=== PATIENT | female | born 1960 | race Two or more races ===

== ENCOUNTER 2016-07-29 10:58 | Emergency (ER) | payer MEDICAID ==
[~2016-07-29] VITALS: Ht 165.1 cm; Wt 86.2 kg
[2016-07-29] MEDS ORDERED: GABAPENTIN300 MG ORAL (11:17)
[2016-07-29] MEDS ORDERED: LEVOTHYROXINE125 MCG ORAL (11:17)
[2016-07-29] MEDS ORDERED: FOLIC ACID1 MG ORAL (11:17)
[2016-07-29] MEDS ORDERED: DICLOFENAC SODI75 MG ORAL (11:17)
[2016-07-29] MEDS ORDERED: OMEPRAZOLE20 M2 ORAL (11:17)
[2016-07-29] MEDS ORDERED: SODIUM BICARBO650 MG PO (11:17)
[2016-07-29] MEDS ORDERED: OYSTER SHELL 51 EAC1 PO (11:17)
[2016-07-29] MEDS ORDERED: PLAQUENIL200 MG ORAL (11:17)
[2016-07-29] MEDS ORDERED: LOSARTAN POTASS50 MG ORAL (11:17)
[2016-07-29] MEDS ORDERED: PAIN & FEVER500 MG PO (11:17)
[2016-07-29] MEDS ORDERED: VITAMIN D250000 UNI1 ORAL (11:17)
[2016-07-29] MEDS ORDERED: GLIPIZIDE5 MG ORAL (11:17)
[2016-07-29] MEDS ORDERED: METFORMIN HCL500 M1 ORAL (11:17)
[2016-07-29] MEDS ORDERED: PREDNISONE10 MG ORAL (11:17)
--- NOTE | 2016-07-29 11:24 | Emergency Room Report ---
History of Present Illness General Chief Complaint: Multiple Trauma/Fall Source: Patient Present Illness HPI Patient presents with complaints of upper chest and back pain Bilateral knee pain patient had a mechanical fall Forward bracing her fall Denies any loss of consciousness Denies any neck pain pain in the chest area is in the upper mid thorax also pain in the mid upper back 8/10 Pain is worse with inspiration Denies any upper extremity discomfort in the arms Allergies: Coded Allergies: No Known Allergies (Unverified , 07/29/16) Patient History Past Medical History: see triage record Pertinent Family History: none Reviewed Nursing Documentation: PMH: Agreed, PSxH: Agreed Nursing Documentation-PM Past Medical History: No History, Except For Hx Asthma: Yes Hx Diabetes: Yes Review of Systems All Other Systems: negative except mentioned in HPI Physical Exam Vital Signs Date Time Temp Pulse Resp B/P Pulse Ox O2 Delivery O2 Flow Rate FiO2 07/29/16 10:52 97.5 95 16 166/87 100 Room Air Sp02 EP Interpretation: reviewed, normal General Appearance: mild distress - Appears in acute pain Head: normocephalic, atraumatic Eyes: bilateral eye EOMI, bilateral eye PERRL ENT: hearing grossly normal, normal pharynx, TMs + canals normal, uvula midline Neck: full range of motion, supple, no meningismus, no bony tend Respiratory: lungs clear, normal breath sounds, no rhonchi, no respiratory distress, no retraction, no accessory muscle use Cardiovascular #1: normal peripheral pulses, regular rate, rhythm, no edema, no gallop, no JVD, no murmur, other - Patient is tender on the chest wall palpation diffusely Gastrointestinal: normal bowel sounds, non tender, soft, no mass, no organomegaly, non-distended, no guarding, no hernia, no pulsatile mass, no rebound Genitourinary: no CVA tenderness Musculoskeletal: other - Tender T-spine through out Neurologic: oriented x3, responsive, sensory intact Psychiatric: mood/affect normal Skin: other - Abrasion on the left knee Lymphatic: normal inspection, no adenopathy Medical Decision Making Diagnostic Impression: Primary Impression: Multiple injuries due to trauma Additional Impressions: Chest wall contusion Back sprain ER Course Given the patient's presentation and initial discomfort CAT scan imaging was obtained all imaging studies were read as no acute pathology Patient did better with pain medications here and at this time stable for close outpatient followup Rhythm Strip Diag. Results EP Interpretation: yes Rate: 77 Rhythm: NSR, no PVC's, no ectopy Other X-Ray Diagnostic Results Other X-Ray Diagnostic Results #1: EP Interpretation: Yes Findings: no fractures, no dislocation, no soft tissue swelling Number of Views: 3 - right knee Other X-Ray Diagnostic Results #2: EP Interpretation: Yes Findings: no fractures, no dislocation, no soft tissue swelling Number of Views: 3 - left knee CT/MRI/US Diagnostic Results CT/MRI/US Diagnostic Results : Impression CT chest no acute disease CT thoracic spine no acute disease Last Vital Signs Date Time Temp Pulse Resp B/P Pulse Ox O2 Delivery O2 Flow Rate FiO2 07/29/16 10:52 97.5 95 16 166/87 100 Room Air Status: improved Disposition: HOME, SELF-CARE Condition: Improved Scripts Acetaminophen With Codeine (T#3) (TYLENOL #3 TAB*) Y Tab 1 TAB ORAL Q8H Y for For Pain, #10 TAB Prov: DELANO REEDER D.O. 07/29/16 Ibuprofen* (MOTRIN*) 600 Mg Tablet 600 MG ORAL Q8H Y for For Pain, #20 TAB 0 Refills Prov: DELANO REEDER D.O. 07/29/16 Additional Instructions: Patient is provided with the discharge instructions notified to follow up with primary doctor in the next 2-3 days otherwise return to the er with any worsening symptoms. DELANO REEDER D.O. Jul 29, 2016 11:24
[2016-07-29] MEDS ORDERED: Morphine Sulfate 4mg/ml Inj IM ONE (11:30)
[2016-07-29 11:42] VITALS: BP 166/87
[2016-07-29] MEDS ORDERED: IBUPROFEN600 MG ORAL (12:51)
[2016-07-29] MEDS ORDERED: ACETAMINOPHEN-1 EAC1 ORAL (12:51)
[2016-07-29 13:10] VITALS: BP 156/91
[2016-07-29 13:45] VITALS: BP 156/91
--- NOTE | 2016-07-30 10:16 | Diagnostic Imaging Report ---
Indication: Right knee pain Technique: XRAY KNEE THREE VIEWS RIGHT Comparison: None Findings: There is no acute fracture or dislocation. A right knee arthroplasty is present without plain film evidence of hardware complication. Mild soft tissue swelling is seen. Impression: No acute osseous abnormality. Mild soft tissue swelling. Clinical correlation recommended. Right knee arthroplasty.
--- NOTE | 2016-07-30 10:25 | Diagnostic Imaging Report ---
Indication: Chest pain Technique: CT chest was performed utilizing automated exposure control without intravenous contrast material. Axial and coronal images were generated. CT dose: Total DLP 2148 mGycm; CTDI vol 33.9 mGy Comparison: None Findings: Evaluation is limited by respiratory motion. Dependent linear opacities are suggestive of atelectasis. Atherosclerotic changes are present. No pericardial or pleural effusions are seen. There is fatty infiltration of the liver. Degenerative changes of the spine are seen. No CT evident thoracic fractures are identified. Degenerative endplate osteophytes of the thoracic spine are seen. Impression: No acute injury of the chest. Atelectasis. Degenerative changes of the spine. Atherosclerotic changes. Fatty infiltration of the partially visualized liver. The CT scanner at [facility] is accredited by the [employer] and the scans are performed using protocols designed to limit radiation exposure to as low as reasonably achievable to attain images of sufficient resolution adequate for diagnostic evaluation.
--- NOTE | 2016-07-30 11:27 | Diagnostic Imaging Report ---
Indication: Left knee pain Technique: XRAY KNEE THREE VIEWS LEFT Comparison: None Findings: There is no radiographically evident acute fracture or dislocation. Tricompartment osteophytes are seen with medial and patellofemoral compartment joint space narrowing. There is osteopenia. Impression: No radiographically evident fracture or dislocation. Clinical correlation recommended. Left knee degenerative changes. Osteopenia.
--- NOTE | 2016-07-30 11:27 | Diagnostic Imaging Report ---
Indication: Back pain status post fall Technique: CT thoracic spine was performed utilizing automated exposure control without intravenous contrast material. Axial and coronal images were generated. CT dose: Total DLP 2148 mGycm; CTDI vol 33.9 mGy Comparison: None Findings: There is no acute fracture. The thoracic alignment is within normal limits. Mild degenerative endplate osteophytes are seen. Impression: No gross fracture or thoracic malalignment. Mild degenerative changes. The CT scanner at [facility] is accredited by the [employer] and the scans are performed using protocols designed to limit radiation exposure to as low as reasonably achievable to attain images of sufficient resolution adequate for diagnostic evaluation.
== END 2016-07-29 13:46 | disposition home or self-care (01) ==
LOC: EDBD 10:58 → EMR 12:06
DX: S20.219A Contusion of unspecified front wall of thorax, initial encounter (principal); S23.3XXA Sprain of ligaments of thoracic spine, initial encounter; S80.212A Abrasion, left knee, initial encounter; J45.909 Unspecified asthma, uncomplicated; E11.9 Type 2 diabetes mellitus without complications; W01.0XXA Fall on same level from slipping, tripping and stumbling without subsequent striking against object, initial encounter; Y92.9 Unspecified place or not applicable; Y99.8 Other external cause status
CPT/HCPCS: 71250; 72128; 73562; 96372; 99283; J2270

== ENCOUNTER 2017-03-17 09:12 | Emergency (ER) | payer MEDICAID, OTHER ==
[~2017-03-17] VITALS: Ht 162.6 cm; Wt 81.6 kg
[~2017-03-17 09:12] MED LIST: ACETAMINOPHEN-1 EAC1 ORAL; DICLOFENAC SODI75 MG ORAL; FOLIC ACID1 MG ORAL; GABAPENTIN300 MG ORAL; GLIPIZIDE5 MG ORAL; IBUPROFEN600 MG ORAL; LEVOTHYROXINE125 MCG ORAL; LOSARTAN POTASS50 MG ORAL; METFORMIN HCL500 M1 ORAL; OMEPRAZOLE20 M2 ORAL; OYSTER SHELL 51 EAC1 PO; PAIN & FEVER500 MG PO; PLAQUENIL200 MG ORAL; PREDNISONE10 MG ORAL; SODIUM BICARBO650 MG PO; VITAMIN D250000 UNI1 ORAL
[2017-03-17 09:20] VITALS: BP 181/90
--- NOTE | 2017-03-17 09:35 | Emergency Room Report ---
History of Present Illness General Chief Complaint: Laceration Source: Patient Present Illness HPI The patient's sliced off the tip of her finger trying to cut chicken. There was some bleeding. It's painful right now. Uncertain when her last tetanus shot was. She is right-handed. She took 2 tramadol before coming which cause some nausea, no vomiting. Pain 7/10, sharp, some radiation towards hand. It was a large knife and the nail and part of the tip was cut off. Not brought in. HTN, DM Allergies: Coded Allergies: No Known Allergies (Unverified , 07/29/16) Patient History Past Medical History: see triage record Social History: Denies: smoking, alcohol use Last Menstrual Period: 2003 Now: No Reviewed Nursing Documentation: PMH: Agreed, PSxH: Agreed Nursing Documentation-PMH Hx Hypertension: Yes Hx Asthma: Yes Hx Diabetes: Yes Review of Systems Constitutional: Denies: fever Cardiovascular: Denies: chest pain Gastrointestinal: Reports: see HPI Musculoskeletal: Reports: see HPI Skin: Reports: see HPI Neurological: Denies: tingling Hematologic/Lymphatic: Reports: see HPI Physical Exam Vital Signs Date Time Temp Pulse Resp B/P (MAP) Pulse Ox O2 Delivery O2 Flow Rate FiO2 03/17/17 09:20 97.3 93 18 181/90 98 Room Air Sp02 EP Interpretation: reviewed, normal General Appearance: well appearing, no apparent distress, GCS 15 Head: normocephalic, atraumatic Eyes: bilateral eye normal inspection, bilateral eye PERRL ENT: hearing grossly normal, normal voice, moist mucus membranes Neck: full range of motion, supple Respiratory: no respiratory distress, speaking full sentences Cardiovascular #2: 2+ radial (L) - good cap fill and oozing from avulsion Gastrointestinal: overweight Musculoskeletal: gait/station normal, normal range of motion Neurologic: alert, motor strength/tone normal, sensory intact, normal gait Psychiatric: mood/affect normal Skin: other - avulsion distal part of nail middle finger L with amputated tip Procedures Laceration/Wound Repair Laceration/Wound Repair : Consent: Verbal Wound Location: upper extremity - L middle finger Wound Length (cm): 1 - 1 cm circumference, part of nail and finger tip - oblique Betadine Prep?: Yes Anesthesia: 1% Lidocaine, other - .25% bupivicaine - digital blocks Volume Anesthetic (ccs): 5 - 5 ml of each lido and bupivicaine Layer Closure?: No Sterile Dressing Applied?: Yes - xeroform Progress Digital block. Hemostasis with electro cautery. Xeroform applied ant then tube (dressing applied by me). Bleeding controlled. Medical Decision Making Diagnostic Impression: Primary Impression: amputation left middle finger tip Additional Impression: Amputation finger Qualified Codes: S68.119A - Complete traumatic metacarpophalangeal amputation of unspecified finger, initial encounter ER Course Patient with avulsion/amputation. Needs hemostasis and antibiotics. Wound cannot be closed primarily. No exposed bone. Hemostasis with electrocautery. Antibiotics given. Digital block with effective pain control. Co-morbidity of diabetes. Wound is clean. Sling applied by tech. Position excellent - discussed need for elevation. Discussed follow up with Dr. Flores , who agrees to see patient. Patient stable for outpatient observation and treatment. Last Vital Signs Date Time Temp Pulse Resp B/P (MAP) Pulse Ox O2 Delivery O2 Flow Rate FiO2 03/17/17 11:42 97.3 87 19 167/85 99 Room Air Status: improved Disposition: HOME, SELF-CARE Condition: Improved Scripts Ondansetron Odt* (ZOFRAN ODT*) 4 Mg Tab.rapdis 4 MG ORAL Q8H Y for Nausea & Vomiting, #12 TAB 0 Refills Prov: Garret Ramesh M.D. 03/17/17 Ibuprofen* (MOTRIN*) 600 Mg Tablet 600 MG ORAL Q6H Y for For Pain, #20 TAB Prov: Garret Ramesh M.D. 03/17/17 Tramadol Hcl* (ULTRAM*) 50 Mg Tablet 50 MG ORAL Q6H Y for For Pain, #14 TAB 0 Refills Prov: Garret Ramesh M.D. 03/17/17 Cephalexin* (KEFLEX*) 500 Mg Capsule 500 MG ORAL Q6H, #28 CAP 0 Refills Prov: Garret Ramesh M.D. 03/17/17 Garret Ramesh M.D. Mar 17, 2017 09:35
[2017-03-17] MEDS ORDERED: Tylenol #3 tab (300mg/30mg) ORAL ONE (09:45)
[2017-03-17] MEDS ORDERED: Lidocaine 1% MPF 10mg/ml 5ml INJ ONE (09:45)
[2017-03-17] MEDS ORDERED: Bupivacaine 0.25% Inj 30ml INJ ONE (09:45)
[2017-03-17] MEDS ORDERED: Tetanus/Diptheria/Pertussis Vaccine 0.5ml Syr IM ONE (09:45)
[2017-03-17] MEDS ORDERED: KEFLEX500 MG ORAL (11:30)
[2017-03-17] MEDS ORDERED: Cephalexin 500mg cap ORAL ONE (11:30)
[2017-03-17] MEDS ORDERED: TRAMADOL HCL50 MG ORAL (11:30)
[2017-03-17] MEDS ORDERED: IBUPROFEN600 MG ORAL (11:30)
[2017-03-17] MEDS ORDERED: ZOFRAN ODT4 MG ORAL (11:30)
[2017-03-17 11:38] VITALS: BP 167/85
[2017-03-17 11:42] VITALS: BP 167/85
== END 2017-03-17 11:44 | disposition home or self-care (01) ==
LOC: EMR 09:42
DX: S68.123A Partial traumatic metacarpophalangeal amputation of left middle finger, initial encounter (principal); W26.0XXA Contact with knife, initial encounter; Y92.009 Unspecified place in unspecified non-institutional (private) residence as the place of occurrence of the external cause; Z23 Encounter for immunization; I10 Essential (primary) hypertension; E11.9 Type 2 diabetes mellitus without complications; J45.909 Unspecified asthma, uncomplicated
CPT/HCPCS: 12001; 90471; 90715; 99284; J3490; Z7502